=== PATIENT | female | born 1980 | race Caucasian/White ===

== ENCOUNTER 2019-12-30 10:37 | Emergency (ER) | payer BC, SELFPAY ==
[2019-12-30 10:50] VITALS: BP 131/88; PULSE 62; RESP 16; TEMP 36.8; O2SAT 100
--- NOTE | 2019-12-30 11:21 | ED.URI ---
HPI - URI/Sore Throat General Chief Complaint: Upper Respiratory Infection Stated Complaint: Well check Time Seen by Provider: 12/30/19 11:16 Source: patient and RN notes reviewed Mode of arrival: ambulatory Limitations: no limitations History of Present Illness HPI Narrative: Patient presents with concern for fever of 100.5 yesterday. She also reports headache, body aches. She reports symptoms have resolved. She denies taking any medications for her symptoms. She reports her employer is requiring a note to return to work. She works in the food service steward industry. She is currently denying any symptoms MD elicited complaint: fever Related Data Home Medications Medication Instructions Recorded Confirmed No Home Medications 12/30/19 12/30/19 Allergies Allergy/AdvReac Type Severity Reaction Status Date / Time No Known Allergies Allergy Verified 12/30/19 10:55 Review of Systems Review of Systems: Narrative: CONSTITUTIONAL: Denies malaise, chills, sweats, or fever. EYES: Denies visual changes, redness, or discharge. ENT: Denies rhinorrhea, congestion, sinus pain, otalgia and sore throat. CARDIOVASCULAR: Denies chest pain, palpitations, or edema. RESPIRATORY: Denies cough. Denies dyspnea. GASTROINTESTINAL: Denies abdominal pain, nausea, vomiting, diarrhea SKIN: Denies rash or itching. MUSCULOSKELETAL: Denies myalgia. NEUROLOGIC: Denies headache. All systems reviewed & are unremarkable except as noted in HPI and below PMFSH Social History Social History Gender identity (if verbalized by the patient): Female Comments At time of signature, agree with nursing past medical, surgical, social and family history. There is no relevant family history pertinent to the presenting complaint Exam Narrative: Exam Narrative: GENERAL: Well-appearing, well-nourished, and in no acute distress. HEAD: Normocephalic, atraumatic. EYES: PERRLA, conjunctivae clear ENT: Nares clear, turbinates pink, no rhinorrhea or epistaxis. Mucous membranes moist. TM pearly caballero with sharp light reflex bilaterally; no tragal tenderness. Oropharynx without erythema or lesions. Tonsils not enlarged and without exudate. NECK: Supple. CHEST: No respiratory distress. Clear to auscultation. No bony deformities, no asymmetry. Speaks in full sentences. HEART: Regular rate and rhythm. No murmur heard. SKIN: Warm, dry, no rash. NEURO: Alert and oriented x3. PSYCH: Normal mood and affect Course Course Emergency Course: Patient is aware of diagnosis, understands and agrees to treatment plan. Anticipatory guidance given. Patient agrees to follow-up as directed and is aware of reasons to seek care at the emergency department. Portions of this record may have been created with voice recognition software Vital Signs Vital signs: Vital Signs Temperature 98.3 F 12/30/19 10:50 Pulse Rate 62 12/30/19 10:50 Respiratory Rate 16 12/30/19 10:50 Blood Pressure 131/88 12/30/19 10:50 Pulse Oximetry 100 12/30/19 10:50 Temperature 98.3 F 12/30/19 10:50 Pulse Rate 62 12/30/19 10:50 Respiratory Rate 16 12/30/19 10:50 Blood Pressure 131/88 12/30/19 10:50 Pulse Oximetry 100 12/30/19 10:50 Reviewed. Patient has been instructed to follow up with her primary care provider within the next week regarding her elevated blood pressure today. MDM - URI/Sore Throat MDM Narrative Medical decision making narrative: Differential diagnosis considered: Strep pharyngitis, allergic rhinitis, upper respiratory tract infection, sinusitis, rhinosinusitis, nasopharyngitis. viral pharyngitis, otitis media, otitis externa, pneumonia, bronchitis, viral cough syndrome, viral syndrome, and influenza. Exam findings show no acute concerns or changes; patient is non-toxic appearing and is in no distress. Patient is appropriate for outpatient treatment and follow-up. Critical Care Time Critical Care Time Critical Care Time: No Discharge Plan Discharge Clinic
== END 2019-12-30 11:30 | disposition home or self-care (01) ==
PROVIDERS: Emergency Provider Nurse Practitioner; PCP Family Medicine Adolescent Medicine
DX: B34.9 Viral infection, unspecified (principal)
CPT/HCPCS: 99211; G0463

== ENCOUNTER 2020-06-21 15:44 | Emergency (ER) | payer BC, SELFPAY ==
--- NOTE | ~2020-06-21 | XR_ITS ---
XR wrist LT min 3V DATE: 06/21/2020 16:19 INDICATION: Fall last night on wrist. Left wrist pain. TECHNIQUE: 4 views COMPARISON: None FINDINGS: No fracture or dislocation, periosteal reaction or bone destruction. Joint spaces are prese rved. No erosive changes or chondrocalcinosis. IMPRESSION: Negative Reviewed, dictated and finalized at location A. IMPRESSION: Negative
--- NOTE | ~2020-06-21 | XR_ITS ---
EXAMINATION: XR foot RT min 3V EXAM DATE: 06/21/2020 16:18 INDICATION: Initial encounter following injury, with pain of the right foot, 5th toe. TECHNIQUE: Right foot dorsoplantar, lateral and oblique projections obtained and reviewed. There is no prior study for comparison. FINDINGS: Right metatarsal bones unremarkable. There are no acute fractures or dislocations identifi ed. There is no subcutaneous gas. The soft tissue is unremarkable. There is talar fusion hardware . IMPRESSION: 1. XR foot RT min 3V exam without acute osseous findings. Reviewed, dictated and finalized at location A.
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
[2020-06-21 15:57] VITALS: BP 135/77; PULSE 82; RESP 18; TEMP 36.8; O2SAT 100
== END 2020-06-21 16:35 | disposition home or self-care (01) ==
PROVIDERS: Emergency Provider Nurse Practitioner Family; PCP Family Medicine Adolescent Medicine
DX: S63.502A Unspecified sprain of left wrist, initial encounter (principal); S66.912A Strain of unspecified muscle, fascia and tendon at wrist and hand level, left hand, initial encounter; W01.0XXA Fall on same level from slipping, tripping and stumbling without subsequent striking against object, initial encounter; S90.121A Contusion of right lesser toe(s) without damage to nail, initial encounter
CPT/HCPCS: 73110; 73630; 99214; G0463